=== PATIENT | female | born 1985 | race Caucasian/White ===

== ENCOUNTER 2017-02-15 09:08 | Emergency (ER) | payer MEDICAID ==
[~2017-02-15] VITALS: Ht 165.1 cm; Wt 61.3 kg
[2017-02-15 11:27] VITALS: BP 119/78
== END 2017-02-15 11:20 | disposition home or self-care (01) ==
LOC: ED 09:08
DX: R10.30 Lower abdominal pain, unspecified (principal); R11.2 Nausea with vomiting, unspecified; Z90.49 Acquired absence of other specified parts of digestive tract
CPT/HCPCS: J1885; Q0162

== ENCOUNTER 2017-04-04 13:19 | Emergency (ER) | payer OTHER ==
[~2017-04-04] VITALS: Ht 165.1 cm; Wt 61.2 kg
[2017-04-04 14:39] LABS: microscopic required? NO
[2017-04-04 15:55] LABS: UA SPECIFIC GRAVITY 1.025 (1.005-1.035); urine erythrocyte NEGATIVE (NEGATIVE)
[2017-04-04 16:20] VITALS: BP 112/60
== END 2017-04-04 16:20 | disposition home or self-care (01) ==
LOC: ED 13:19
PROVIDERS: Emergency Medicine
DX: O26.891 Other specified pregnancy related conditions, first trimester (principal); R50.9 Fever, unspecified; M54.5 Low back pain; R30.0 Dysuria; R11.2 Nausea with vomiting, unspecified; F12.929 Cannabis use, unspecified with intoxication, unspecified; Z3A.01 Less than 8 weeks gestation of pregnancy; Z90.49 Acquired absence of other specified parts of digestive tract
CPT/HCPCS: 36415; 87491; 87591; Q0092

== ENCOUNTER 2017-04-11 06:31 | Emergency (ER) | payer OTHER ==
[2017-04-11 07:42] LABS: BASOPHIL % 0.4 % (0-2); PLATELET COUNT 195 x10^3mcL (130-400)
[2017-04-11 07:45] LABS: RED CELL DISTRIBUTION WIDTH 14.9 % (11.5-14.5)
[2017-04-11 09:21] VITALS: BP 96/58
== END 2017-04-11 09:21 | disposition home or self-care (01) ==
LOC: ED 06:31
PROVIDERS: Emergency Medicine
DX: O03.9 Complete or unspecified spontaneous abortion without complication (principal); Z3A.00 Weeks of gestation of pregnancy not specified
CPT/HCPCS: 36415

== ENCOUNTER 2017-04-13 11:54 | Emergency (ER) | payer OTHER ==
[~2017-04-13] VITALS: Ht 165.1 cm; Wt 60.0 kg
[2017-04-13 12:30] LABS: BASOPHIL % 0.6 % (0-2); PLATELET COUNT 200 x10^3mcL (130-400); RED CELL DISTRIBUTION WIDTH 14.4 % (11.5-14.5)
[2017-04-13 14:20] VITALS: BP 100/59
== END 2017-04-13 14:20 | disposition home or self-care (01) ==
LOC: ED 11:54
DX: O20.0 Threatened abortion (principal); Z3A.01 Less than 8 weeks gestation of pregnancy
CPT/HCPCS: 36415

== ENCOUNTER 2019-01-04 12:20 | Emergency (ER) | payer OTHER ==
[~2019-01-04] VITALS: Ht 165.1 cm; Wt 63.5 kg
[2019-01-04 12:39] VITALS: Ht 165.1 cm; Wt 63.5 kg
[2019-01-04 14:57] VITALS: BP 116/74
== END 2019-01-04 14:57 | disposition home or self-care (01) ==
LOC: ED 12:20
DX: G43.909 Migraine, unspecified, not intractable, without status migrainosus (principal); Z90.49 Acquired absence of other specified parts of digestive tract
CPT/HCPCS: J1100; J1200; J1885; J2765; J7030